=== PATIENT | male | born 1955 | race Caucasian/White ===

== ENCOUNTER → 2017-07-24 | Outpatient (CLI) | payer OTHER ==
[~2017-07-24] MED LIST: ALBU8.5H8 IH; ALPR-475 PO; ASPI325T17 PO; ATOR40TA PO; ATOR40TA78 PO; COLC0.6T37 PO; DEXT4TAB PO; DIGO125T PO; DILT120C75 PO; DILT30TA33 PO; DOXY100T PO; ENOX40SY4 SQ; FERR325T18 PO; FLUC200T PO; FLUT1AER PO; FLUT1BLS INH; FURO40TA6 PO; GLIM2TAB PO; GLIM2TAB2 PO; GLIM4TAB PO; INSU100I18 SQ-INSULIN; IPRA0.2S35 INH; IPRA3AMP NPPB; LATANOPROST OPTH OP; MAGN400T26 PO; METF500T PO; METOPROLOL ER PO; OXYC5SOL8 PO; PANT40TA5 PO; POTA20PA25 PO; PRED10TA14 PO; PRED20TA PO; PRED5DRO15 LEFTEYE; PRED5DRO2 LEFTEYE; PREDNISOLONE ACETATE; TAMS-11 PO; TAMS0.4C2 PO; TIOT18CA INH; WARF10TA6 PO; WARF5TAB7 PO; WARF7.5T6 PO; oxycodone
== END | disposition home or self-care (01) ==
LOC: CFH 15:34
PROVIDERS: ATTEND Internal Medicine Cardiovascular Disease
DX: I50.33 Acute on chronic diastolic (congestive) heart failure (principal)
CPT/HCPCS: 93306

== ENCOUNTER 2017-11-06 21:16 | Emergency (ER) | payer OTHER ==
[~2017-11-06] VITALS: Ht 165.1 cm; Wt 100.5 kg
[2017-11-06 22:01] LABS: BASOPHILS # (AUTO) 0.01 x10^3/uL (0-0.1); BASOPHILS % (AUTO) 0 % (0-1); EOSINOPHILS # (AUTO) 0.27 x10^3/uL (0-0.4); EOSINOPHILS % (AUTO) 4 % (1-7); LYMPHOCYTES % (AUTO) 19 % (22-44); MD NO; MEAN CORPUSCULAR HEMOGLOBIN 29.9 pg (27.5-34.5); MEAN CORPUSCULAR HGB CONC 32.3 g/dL (33.2-36.2); MEAN CORPUSCULAR VOLUME 92.4 fL (81-97); MEAN PLATELET VOLUME 8.6 fL (7.4-10.4); MONOCYTES # (AUTO) 0.75 x10^3/uL (0.2-0.8); MONOCYTES % (AUTO) 11 % (2-9); NEUTROPHILS # (AUTO) 4.56 x10^3/uL (1.8-6.8); NEUTROPHILS % (AUTO) 66 % (42-75); PLATELET COUNT 203 x10^3/uL (130-400); RED CELL DISTRIBUTION WIDTH 16.6 % (9.4-14.8)
[2017-11-06 22:22] LABS: INTERNATIONAL NORMALIZED RATIO 6.5 (0.93-1.1); PROTHROMBIN TIME 65.2 Seconds (9.6-11.5)
[2017-11-06] MEDS ORDERED: BACITRACIN ZINC OINT 500U/GM, 0.9 GM ONE ×2 (23:09→23:16)
[2017-11-06 23:26] VITALS: BP 139/94
[2017-11-06] MEDS ORDERED: PHYTONADIONE 5 MG TABLET PO ONE (23:30)
== END 2017-11-07 01:56 | disposition home or self-care (01) ==
LOC: ED 23:15
DX: R04.0 Epistaxis (principal); Z79.01 Long term (current) use of anticoagulants; E03.9 Hypothyroidism, unspecified; E11.9 Type 2 diabetes mellitus without complications; E87.1 Hypo-osmolality and hyponatremia; J44.9 Chronic obstructive pulmonary disease, unspecified; Z93.3 Colostomy status; Z99.81 Dependence on supplemental oxygen
CPT/HCPCS: 30901; 36415; 85025; 85610; 85730; 99284

== ENCOUNTER → 2018-03-12 | Outpatient (CLI) | payer OTHER ==
[~2018-03-12] MED LIST changes: +WARF-36 PO; +WARF10TA43 PO; -WARF10TA6 PO; -WARF5TAB7 PO; +WARF7.5T46 PO; -WARF7.5T6 PO
== END | disposition home or self-care (01) ==
LOC: RAD 10:43
PROVIDERS: ATTEND Internal Medicine
DX: I51.7 Cardiomegaly (principal); R06.02 Shortness of breath
CPT/HCPCS: 71046

== ENCOUNTER → 2018-06-02 | Outpatient (CLI) | payer OTHER ==
[~2018-06-02] MED LIST changes: -DEXT4TAB PO; -IPRA3AMP NPPB; +IPRA3AMP30 NPPB; +REGADENOSON 0.4 MG/5 ML SYRINGE ONE; +[UNRECOGNIZED DRUG - CODE] PO
== END | disposition home or self-care (01) ==
LOC: CFH 07:38
PROVIDERS: ATTEND Internal Medicine Cardiovascular Disease
DX: I25.9 Chronic ischemic heart disease, unspecified (principal); I10 Essential (primary) hypertension; I48.91 Unspecified atrial fibrillation; R06.02 Shortness of breath
CPT/HCPCS: 78452; 93017; 93306; A9502; J2785

== ENCOUNTER → 2018-09-10 | Outpatient (CLI) | payer OTHER ==
[~2018-09-10] MED LIST changes: +DEXT-230 PO; -REGADENOSON 0.4 MG/5 ML SYRINGE ONE; -[UNRECOGNIZED DRUG - CODE] PO
== END | disposition home or self-care (01) ==
LOC: CFH 09:23
PROVIDERS: ATTEND Nurse Practitioner Family
DX: J44.9 Chronic obstructive pulmonary disease, unspecified (principal); J96.11 Chronic respiratory failure with hypoxia
CPT/HCPCS: 71250

== ENCOUNTER → 2019-06-30 | Outpatient (CLI) | payer OTHER ==
[~2019-06-30] MED LIST changes: +ALLO100T30 PO; -ALPR-475 PO; +ALPR0.5T7 PO; +APIX5TAB PO; +DILT120C58 PO; -DILT120C75 PO; +DILT120C83 PO; +FURO20TA3 PO; -GLIM2TAB2 PO; +GLIM2TAB3 PO; +LEVO88TA4 PO; +LOSA25TA25 PO; +MAGN400T36 PO; +POTA10TA12 PO; +PREDNISOLONE; +UMEC1DIS INH
== END | disposition home or self-care (01) ==
LOC: RAD 11:50
PROVIDERS: ATTEND Nurse Practitioner Family
DX: J44.9 Chronic obstructive pulmonary disease, unspecified (principal); R19.4 Change in bowel habit; R19.5 Other fecal abnormalities; R19.7 Diarrhea, unspecified; F10.21 Alcohol dependence, in remission; E78.00 Pure hypercholesterolemia, unspecified; E11.21 Type 2 diabetes mellitus with diabetic nephropathy; E66.9 Obesity, unspecified; I50.33 Acute on chronic diastolic (congestive) heart failure; J96.11 Chronic respiratory failure with hypoxia; I11.0 Hypertensive heart disease with heart failure; I50.9 Heart failure, unspecified; I48.20 Chronic atrial fibrillation, unspecified; E03.9 Hypothyroidism, unspecified; Z79.01 Long term (current) use of anticoagulants; Z91.19 Patient's noncompliance with other medical treatment and regimen; Z98.890 Other specified postprocedural states
CPT/HCPCS: 74018; 94060; 94618; 94729

== ENCOUNTER 2019-07-09 08:43 | Day surgery (SDC) | payer OTHER ==
[~2019-07-09] VITALS: Ht 165.1 cm; Wt 103.9 kg
[2019-07-09] MEDS ORDERED: LACTATED RINGERS 1,000 ML IV SCH (08:59)
[2019-07-09 09:26] VITALS: BP 145/93
[2019-07-09] MEDS ORDERED: SUCCINYLCHOLINE 20 MG/ML, 10ML ONE (12:05)
[2019-07-09] MEDS ORDERED: ONDANSETRON 2MG/ML, 2ML ONE (12:05)
[2019-07-09] MEDS ORDERED: PROPOFOL 10 MG/ML, 20ML ONE (12:05)
== END 2019-07-09 15:15 | disposition home or self-care (01) ==
LOC: OUT 08:43
PROVIDERS: ATTEND Internal Medicine Gastroenterology
DX: R19.7 Diarrhea, unspecified (principal); D12.3 Benign neoplasm of transverse colon; D12.4 Benign neoplasm of descending colon; K57.30 Diverticulosis of large intestine without perforation or abscess without bleeding; K64.8 Other hemorrhoids; J44.9 Chronic obstructive pulmonary disease, unspecified; I10 Essential (primary) hypertension; I48.91 Unspecified atrial fibrillation; E11.9 Type 2 diabetes mellitus without complications; E66.9 Obesity, unspecified; Z68.38 Body mass index [BMI] 38.0-38.9, adult; Z88.8 Allergy status to other drugs, medicaments and biological substances; Z79.899 Other long term (current) drug therapy
CPT/HCPCS: 45380; 45385; 82962; 88305; J0330; J2405; J2704; J7120

== ENCOUNTER 2019-08-31 08:17 | Inpatient (IN) | payer OTHER ==
[~2019-08-31] VITALS: Ht 165.1 cm; Wt 101.8 kg
[2019-08-31] MEDS ORDERED: SODIUM CHLORIDE FLUSH 10ML SYR IVF ONE (08:30)
[2019-08-31] MEDS ORDERED: FUROSEMIDE 40 MG/4 ML ONE (08:41)
[2019-08-31] MEDS ORDERED: methylPREDNISolone SOD SUCC 125 MG/2 ML ONE (08:41)
[2019-08-31] MEDS ORDERED: ALBUTEROL/IPRATROPIUM 2.5MG/0.5MG, 3 ML ONE (08:44)
[2019-08-31] MEDS: ALBUTEROL/IPRATROPIUM 2.5MG/0.5MG, 3 ML NPPB SCH ×3 (08:51→21:00)
[2019-08-31 08:57] LABS: ALANINE AMINOTRANSFERASE 17 U/L (12-78); ALBUMIN 3.3 g/dL (3.4-5.0); ANION GAP 4 mmol/L (5-15); CALCIUM 8.7 mg/dL (8.5-10.1); CHLORIDE 97 mmol/L (98-107); CREATININE 1.12 mg/dL (0.7-1.3)
[2019-08-31] MEDS ORDERED: methylPREDNISolone SOD SUCC 125 MG/2 ML IV ONE (09:00)
[2019-08-31] MEDS ORDERED: FUROSEMIDE 40 MG/4 ML IV ONE (09:00)
[2019-08-31 09:01] LABS: ALKALINE PHOSPHATASE 86 U/L (45-117); BILIRUBIN,TOTAL 0.4 mg/dL (0.2-1.0); TOTAL PROTEIN 7.9 g/dL (6.4-8.2); TROPONIN I < 0.015 ng/mL (0.000-0.045)
[2019-08-31 09:03] LABS: MD YES; MEAN CORPUSCULAR HEMOGLOBIN 29.7 pg (27.5-34.5); MEAN CORPUSCULAR HGB CONC 31.8 g/dL (33.2-36.2); MEAN CORPUSCULAR VOLUME 93.5 fL (81-97); PLATELET COUNT 159 x10^3/uL (130-400); RED BLOOD COUNT 3.96 x10^6/uL (4.38-5.82)
[2019-08-31 09:24] LABS: BAND#(MANUAL) 0.09 x10^3/uL; BANDS%(MANUAL) 1 % (0-7); BASOS#(MANUAL) 0.09 x10^3/uL (0-0.1); BASOS% (MANUAL) 1 % (0-1); EOS#(MANUAL) 0.17 x10^3/uL (0.0-0.4); EOS% (MANUAL) 2 % (1-7); LYMPH#(MANUAL) 1.46 x10^3/uL (1-3.4); LYMPHS% (MANUAL) 17 % (22-44); MONOS#(MANUAL) 0.69 x10^3/uL (0.3-2.7); MONOS% (MANUAL) 8 % (2-9); SEG#(MANUAL) 6.11 x10^3/uL (1.8-6.8); SEGS% (MANUAL) 71 % (42-75)
[2019-08-31 09:26] LABS: <PLATELET ESTIMATE> ADEQUATE; <PLT MORPHOLOGY> NORMAL PLT MORPH; <RBC MORPHOLOGY> NORMAL
[2019-08-31] MEDS ORDERED: FURO20TA3 PO (10:48)
[2019-08-31] MEDS ORDERED: LOSA25TA25 PO (10:48)
[2019-08-31] MEDS ORDERED: LABETALOL 5MG/ML, 20ML IVPush PRN (12:00)
[2019-08-31] MEDS ORDERED: BISACODYL 10 MG SUPP PR PRN (12:00)
[2019-08-31] MEDS ORDERED: ENALAPRILAT 1.25 MG/ML, 2ML IVPush PRN (12:00)
[2019-08-31] MEDS ORDERED: GLUCAGON 1 MG IM PRN (12:00)
[2019-08-31] MEDS: methylPREDNISolone SOD SUCC 125 MG/2 ML IVPush SCH ×2 (12:00→17:53)
[2019-08-31] MEDS ORDERED: DOCUSATE 100 MG CAPSULE PO PRN (12:00)
[2019-08-31] MEDS ORDERED: POLYETHYLENE GLYCOL 17 GM PACKET PO PRN (12:00)
[2019-08-31] MEDS ORDERED: DEXTROSE 4 GM TAB.CHEW PO PRN (12:00)
[2019-08-31] MEDS ORDERED: DEXTROSE 50%, 50ML SYRINGE IVPush PRN (12:00)
[2019-08-31] MEDS ORDERED: DILTIAZEM 5 MG/ML, 5ML IVPush PRN (12:00)
[2019-08-31] MEDS ORDERED: ONDANSETRON ODT 4 MG PO PRN (12:00)
[2019-08-31] MEDS ORDERED: ONDANSETRON 2MG/ML, 2ML IVPush PRN (12:00)
[2019-08-31] MEDS ORDERED: ALBUTEROL/IPRATROPIUM 2.5MG/0.5MG, 3 ML NPPB PRN (13:00)
[2019-08-31] MEDS ORDERED: TAMSULOSIN 0.4 MG CAP.ER.24H ONE (13:28)
[2019-08-31] MEDS ORDERED: DILTIAZEM 60 MG TABLET ONE (13:28)
[2019-08-31] MEDS ORDERED: PANTOPRAZOLE 20MG TABLET ONE (13:28)
[2019-08-31] MEDS ORDERED: APIXABAN 5 MG TABLET ONE (13:28)
[2019-08-31] MEDS ORDERED: GUAIFENESIN ER 600 MG TABLET ONE (13:28)
[2019-08-31] MEDS: TAMSULOSIN 0.4 MG CAP.ER.24H PO SCH (13:34)
[2019-08-31] MEDS: GUAIFENESIN ER 600 MG TABLET PO SCH ×2 (13:34→20:48)
[2019-08-31] MEDS: APIXABAN 5 MG TABLET PO SCH ×2 (13:35→20:48)
--- NOTE | 2019-08-31 14:21 | NUR ---
PT RECEIVED MEAL TRAY. DENIES FURTHER NEEDS AT THIS TIME
[2019-08-31] MEDS ORDERED: ALBUTEROL/IPRATROPIUM 2.5MG/0.5MG, 3 ML NPPB SCH (15:00)
[2019-08-31] MEDS: PANTOPROZOLE 40MG TABLET PO SCH (15:24)
[2019-08-31] MEDS: DIGOXIN 0.125 MG TABLET PO SCH (15:24)
[2019-08-31] MEDS: LOSARTAN 25MG TABLET PO SCH (15:25)
[2019-08-31] MEDS: POTASSIUM CHLORIDE 10 MEQ TABLET.ER PO SCH (15:25)
[2019-08-31] MEDS: DILTIAZEM 120 MG CAP.ER.24H PO SCH (15:25)
[2019-08-31] MEDS: MAGNESIUM OXIDE 400 MG TABLET PO SCH (17:25)
[2019-08-31] MEDS: INSULIN LISPRO 100 UNITS/ML, PEN SQ-INSULIN SCH ×2 (17:51→20:55)
[2019-08-31 19:48] VITALS: BP 137/85
[2019-08-31] MEDS: SODIUM CHLORIDE FLUSH 10ML SYR IVF SCH (20:49)
[2019-08-31] MEDS: ATORVASTATIN 40 MG TABLET PO SCH (20:54)
[2019-09-01] MEDS: methylPREDNISolone SOD SUCC 125 MG/2 ML IVPush SCH ×4 (00:43→18:14)
[2019-09-01 01:00] VITALS: BP 116/77
[2019-09-01 05:17] LABS: MEAN CORPUSCULAR HEMOGLOBIN 29.1 pg (27.5-34.5); MEAN CORPUSCULAR HGB CONC 31.6 g/dL (33.2-36.2); MEAN CORPUSCULAR VOLUME 92.1 fL (81-97); MEAN PLATELET VOLUME 8.6 fL (7.4-10.4); PLATELET COUNT 174 x10^3/uL (130-400); RED BLOOD COUNT 4.14 x10^6/uL (4.38-5.82); RED CELL DISTRIBUTION WIDTH 14.9 % (9.4-14.8)
[2019-09-01 05:20] LABS: ALBUMIN 3.4 g/dL (3.4-5.0); ANION GAP 3 mmol/L (5-15); CALCIUM 9.1 mg/dL (8.5-10.1); CHLORIDE 96 mmol/L (98-107)
[2019-09-01 05:25] LABS: ALANINE AMINOTRANSFERASE 17 U/L (12-78); ALKALINE PHOSPHATASE 88 U/L (45-117); BILIRUBIN,TOTAL 0.9 mg/dL (0.2-1.0); TOTAL PROTEIN 8.3 g/dL (6.4-8.2)
[2019-09-01 05:55] LABS: BASOPHILS % (AUTO) 0 % (0-1); EOSINOPHILS % (AUTO) 0 % (1-7); LYMPHOCYTES # (AUTO) 0.47 x10^3/uL (1-3.4); LYMPHOCYTES % (AUTO) 9 % (22-44); MD SCAN; MONOCYTES % (AUTO) 2 % (2-9); NEUTROPHILS # (AUTO) 4.58 x10^3/uL (1.8-6.8); NEUTROPHILS % (AUTO) 89 % (42-75)
[2019-09-01] MEDS: PANTOPROZOLE 40MG TABLET PO SCH (06:07)
[2019-09-01] MEDS ORDERED: MAGNESIUM SULFATE 3 GM in SODIUM CHLORIDE 0.9% 100 ML IV ONE (08:00)
[2019-09-01] MEDS ORDERED: SODIUM PHOSPHATE 20 MMOL in SODIUM CHLORIDE 0.9% 500 ML IV ONE (08:00)
[2019-09-01] MEDS: INSULIN LISPRO 100 UNITS/ML, PEN SQ-INSULIN SCH ×4 (08:01→21:21)
[2019-09-01 08:27] VITALS: BP 133/76
[2019-09-01] MEDS ORDERED: FUROSEMIDE 40 MG/4 ML IV SCH (09:00)
[2019-09-01] MEDS: DIGOXIN 0.125 MG TABLET PO SCH (09:27)
[2019-09-01] MEDS: DILTIAZEM 120 MG CAP.ER.24H PO SCH (09:27)
[2019-09-01] MEDS: GUAIFENESIN ER 600 MG TABLET PO SCH ×2 (09:27→21:21)
[2019-09-01] MEDS: CARVEDILOL 3.125 MG TABLET PO SCH ×2 (09:27→18:14)
[2019-09-01] MEDS: MAGNESIUM OXIDE 400 MG TABLET PO SCH (09:28)
[2019-09-01] MEDS: APIXABAN 5 MG TABLET PO SCH ×2 (09:28→21:21)
[2019-09-01] MEDS: TAMSULOSIN 0.4 MG CAP.ER.24H PO SCH (09:28)
[2019-09-01] MEDS: POTASSIUM CHLORIDE 10 MEQ TABLET.ER PO SCH (09:28)
[2019-09-01] MEDS: LOSARTAN 25MG TABLET PO SCH (09:28)
[2019-09-01] MEDS: SODIUM CHLORIDE FLUSH 10ML SYR IVF SCH ×2 (09:29→21:20)
[2019-09-01 10:35] LABS: % IRON SATURATION 21 % (20-55); IRON LEVEL 70 mcg/dL (65-175); TOTAL IRON BINDING CAPACITY 338 mcg/dL (250-450)
[2019-09-01] MEDS: ALBUTEROL/IPRATROPIUM 2.5MG/0.5MG, 3 ML NPPB SCH ×2 (10:45→21:00)
[2019-09-01 13:12] VITALS: BP 116/76
[2019-09-01] MEDS ORDERED: ALBUTEROL/IPRATROPIUM 2.5MG/0.5MG, 3 ML NPPB PRN (16:30)
[2019-09-01 20:42] VITALS: BP 118/82
[2019-09-01] MEDS: FUROSEMIDE 40 MG/4 ML IV SCH (21:20)
[2019-09-01] MEDS: ATORVASTATIN 40 MG TABLET PO SCH (21:21)
[2019-09-01] MEDS: ACETAMINOPHEN 325 MG TABLET PO PRN (21:21)
[2019-09-01 21:26] VITALS: BP 113/72
[2019-09-02] MEDS: methylPREDNISolone SOD SUCC 125 MG/2 ML IVPush SCH ×2 (01:27→09:44)
[2019-09-02 01:53] VITALS: BP 117/68
[2019-09-02 05:47] VITALS: BP 134/84
[2019-09-02] MEDS: PANTOPROZOLE 40MG TABLET PO SCH (05:54)
[2019-09-02] MEDS: CARVEDILOL 3.125 MG TABLET PO SCH ×2 (05:54→17:14)
[2019-09-02 06:27] LABS: ANION GAP 4 mmol/L (5-15); CALCIUM 8.8 mg/dL (8.5-10.1); CHLORIDE 94 mmol/L (98-107)
[2019-09-02 06:28] LABS: CREATININE 1.07 mg/dL (0.7-1.3)
[2019-09-02 08:18] VITALS: BP 130/72
[2019-09-02] MEDS: INSULIN LISPRO 100 UNITS/ML, PEN SQ-INSULIN SCH ×4 (08:26→20:57)
[2019-09-02] MEDS: ALBUTEROL/IPRATROPIUM 2.5MG/0.5MG, 3 ML NPPB SCH ×2 (09:00→19:45)
[2019-09-02] MEDS: DILTIAZEM 120 MG CAP.ER.24H PO SCH (09:43)
[2019-09-02] MEDS: TAMSULOSIN 0.4 MG CAP.ER.24H PO SCH (09:43)
[2019-09-02] MEDS: GUAIFENESIN ER 600 MG TABLET PO SCH ×2 (09:43→20:57)
[2019-09-02] MEDS: MAGNESIUM OXIDE 400 MG TABLET PO SCH (09:43)
[2019-09-02] MEDS: POTASSIUM CHLORIDE 10 MEQ TABLET.ER PO SCH (09:43)
[2019-09-02] MEDS: DIGOXIN 0.125 MG TABLET PO SCH (09:44)
[2019-09-02] MEDS: FUROSEMIDE 40 MG/4 ML IV SCH ×2 (09:44→20:58)
[2019-09-02] MEDS: LOSARTAN 25MG TABLET PO SCH (09:44)
[2019-09-02] MEDS: APIXABAN 5 MG TABLET PO SCH ×2 (09:44→20:57)
[2019-09-02] MEDS: SODIUM CHLORIDE FLUSH 10ML SYR IVF SCH ×2 (09:46→20:58)
[2019-09-02 20:05] VITALS: BP 129/80
[2019-09-02 20:55] VITALS: BP 106/70
[2019-09-02] MEDS: methylPREDNISolone SOD SUCC 40 MG/ML IVPush SCH (20:58)
[2019-09-02] MEDS: ATORVASTATIN 40 MG TABLET PO SCH (20:58)
[2019-09-02] MEDS: ACETAMINOPHEN 325 MG TABLET PO PRN (21:09)
[2019-09-03] MEDS ORDERED: COLC0.6C3 PO (00:47)
[2019-09-03] MEDS ORDERED: ALLO100T30 PO (00:49)
[2019-09-03] MEDS ORDERED: PRED5DRO20 LEFTEYE (00:51)
[2019-09-03] MEDS ORDERED: LOSA25TA2 PO (00:56)
[2019-09-03 01:11] VITALS: BP 134/85
[2019-09-03] MEDS: ACETAMINOPHEN 325 MG TABLET PO PRN (01:13)
[2019-09-03 05:35] VITALS: BP 128/85
[2019-09-03] MEDS: CARVEDILOL 3.125 MG TABLET PO SCH ×2 (05:38→18:33)
[2019-09-03] MEDS: PANTOPROZOLE 40MG TABLET PO SCH (05:38)
[2019-09-03] MEDS: INSULIN LISPRO 100 UNITS/ML, PEN SQ-INSULIN SCH ×5 (08:18→22:03)
[2019-09-03 09:08] VITALS: BP 91/62
[2019-09-03 09:38] LABS: ANION GAP 5 mmol/L (5-15); CALCIUM 8.8 mg/dL (8.5-10.1); CHLORIDE 91 mmol/L (98-107); CREATININE 1.27 mg/dL (0.7-1.3)
[2019-09-03] MEDS: FUROSEMIDE 40 MG/4 ML IV SCH (09:47)
[2019-09-03] MEDS: TAMSULOSIN 0.4 MG CAP.ER.24H PO SCH (09:48)
[2019-09-03] MEDS: DILTIAZEM 120 MG CAP.ER.24H PO SCH (09:48)
[2019-09-03] MEDS: methylPREDNISolone SOD SUCC 40 MG/ML IVPush SCH (09:48)
[2019-09-03] MEDS: GUAIFENESIN ER 600 MG TABLET PO SCH ×2 (09:48→22:02)
[2019-09-03] MEDS: DIGOXIN 0.125 MG TABLET PO SCH (09:49)
[2019-09-03] MEDS: APIXABAN 5 MG TABLET PO SCH ×2 (09:49→22:02)
[2019-09-03] MEDS: LOSARTAN 25MG TABLET PO SCH (09:49)
[2019-09-03] MEDS: POTASSIUM CHLORIDE 10 MEQ TABLET.ER PO SCH (09:49)
[2019-09-03] MEDS: MAGNESIUM OXIDE 400 MG TABLET PO SCH (09:57)
[2019-09-03] MEDS: SODIUM CHLORIDE FLUSH 10ML SYR IVF SCH ×2 (09:58→21:00)
[2019-09-03] MEDS: ALBUTEROL/IPRATROPIUM 2.5MG/0.5MG, 3 ML NPPB SCH ×2 (10:55→19:05)
[2019-09-03 13:50] VITALS: BP 110/78
[2019-09-03] MEDS ORDERED: SODIUM CHLORIDE 0.9%, 250ML IVBOLUS ONE (15:30)
[2019-09-03 19:11] VITALS: BP 128/78
[2019-09-03] MEDS: ATORVASTATIN 40 MG TABLET PO SCH (22:02)
[2019-09-04] MEDS: ALBUTEROL/IPRATROPIUM 2.5MG/0.5MG, 3 ML NPPB SCH ×3 (01:33→21:09)
[2019-09-04 01:46] VITALS: BP 132/76
[2019-09-04 06:37] VITALS: BP 127/87
[2019-09-04] MEDS: PANTOPROZOLE 40MG TABLET PO SCH (06:38)
[2019-09-04] MEDS: CARVEDILOL 3.125 MG TABLET PO SCH ×2 (06:38→16:49)
[2019-09-04] MEDS: INSULIN LISPRO 100 UNITS/ML, PEN SQ-INSULIN SCH ×4 (09:00→20:58)
[2019-09-04] MEDS: LOSARTAN 25MG TABLET PO SCH (09:00)
[2019-09-04] MEDS: POTASSIUM CHLORIDE 10 MEQ TABLET.ER PO SCH (09:00)
[2019-09-04] MEDS: SODIUM CHLORIDE FLUSH 10ML SYR IVF SCH ×2 (09:00→20:58)
[2019-09-04] MEDS ORDERED: methylPREDNISolone SOD SUCC 40 MG/ML IVPush SCH (09:00)
[2019-09-04] MEDS: APIXABAN 5 MG TABLET PO SCH ×2 (09:00→20:58)
[2019-09-04] MEDS: MAGNESIUM OXIDE 400 MG TABLET PO SCH (09:00)
[2019-09-04] MEDS: GUAIFENESIN ER 600 MG TABLET PO SCH ×2 (09:00→20:58)
[2019-09-04] MEDS: TAMSULOSIN 0.4 MG CAP.ER.24H PO SCH (09:00)
[2019-09-04] MEDS: DIGOXIN 0.125 MG TABLET PO SCH (09:01)
[2019-09-04] MEDS: DILTIAZEM 120 MG CAP.ER.24H PO SCH (09:01)
[2019-09-04 09:32] LABS: CALCIUM 8.7 mg/dL (8.5-10.1); CHLORIDE 94 mmol/L (98-107); CREATININE 1.06 mg/dL (0.7-1.3)
[2019-09-04 09:57] LABS: ANION GAP 3 mmol/L (5-15)
[2019-09-04] MEDS ORDERED: FUROSEMIDE 40 MG/4 ML IV SCH (11:30)
[2019-09-04 16:00] VITALS: BP 115/79
[2019-09-04 20:52] VITALS: BP 119/84
[2019-09-04] MEDS: ATORVASTATIN 40 MG TABLET PO SCH (20:58)
[2019-09-05 01:45] VITALS: BP 126/89
[2019-09-05 05:03] LABS: ANION GAP 6 mmol/L (5-15); CALCIUM 8.7 mg/dL (8.5-10.1); CHLORIDE 91 mmol/L (98-107); CREATININE 1.15 mg/dL (0.7-1.3)
[2019-09-05] MEDS: PANTOPROZOLE 40MG TABLET PO SCH (06:16)
[2019-09-05] MEDS: CARVEDILOL 3.125 MG TABLET PO SCH (06:17)
[2019-09-05] MEDS: INSULIN LISPRO 100 UNITS/ML, PEN SQ-INSULIN SCH ×2 (07:00→11:28)
[2019-09-05 07:05] VITALS: BP 122/85
[2019-09-05] MEDS: ALBUTEROL/IPRATROPIUM 2.5MG/0.5MG, 3 ML NPPB SCH (09:30)
[2019-09-05] MEDS: DILTIAZEM 120 MG CAP.ER.24H PO SCH (09:53)
[2019-09-05] MEDS: MAGNESIUM OXIDE 400 MG TABLET PO SCH (09:53)
[2019-09-05] MEDS: LOSARTAN 25MG TABLET PO SCH (09:53)
[2019-09-05] MEDS: TAMSULOSIN 0.4 MG CAP.ER.24H PO SCH (09:53)
[2019-09-05] MEDS: APIXABAN 5 MG TABLET PO SCH (09:53)
[2019-09-05] MEDS: POTASSIUM CHLORIDE 10 MEQ TABLET.ER PO SCH (09:53)
[2019-09-05] MEDS: GUAIFENESIN ER 600 MG TABLET PO SCH (09:54)
[2019-09-05] MEDS: DIGOXIN 0.125 MG TABLET PO SCH (09:54)
[2019-09-05] MEDS: SODIUM CHLORIDE FLUSH 10ML SYR IVF SCH (09:55)
[2019-09-05] MEDS: ACETAMINOPHEN 325 MG TABLET PO PRN (11:06)
[2019-09-05] MEDS ORDERED: FURO-92 PO (12:26)
[2019-09-05] MEDS ORDERED: CARV3.1212 PO (12:26)
== END 2019-09-05 14:31 | disposition home health service (06) | DRG 291 ==
LOC: ED 09:01 → EDIP 10:30 → 4WST 15:46 → DCLOUNGE 09-05 14:18
PROVIDERS: ADMIT Internal Medicine; ATTEND Hospitalist
DX: I11.0 Hypertensive heart disease with heart failure (principal); J96.21 Acute and chronic respiratory failure with hypoxia; J96.22 Acute and chronic respiratory failure with hypercapnia; D68.69 Other thrombophilia; E87.3 Alkalosis; I48.20 Chronic atrial fibrillation, unspecified; J44.1 Chronic obstructive pulmonary disease with (acute) exacerbation; D64.9 Anemia, unspecified; I50.33 Acute on chronic diastolic (congestive) heart failure; E03.9 Hypothyroidism, unspecified; E11.9 Type 2 diabetes mellitus without complications; E66.01 Morbid (severe) obesity due to excess calories; E78.5 Hyperlipidemia, unspecified; E83.39 Other disorders of phosphorus metabolism; E83.42 Hypomagnesemia; I27.20 Pulmonary hypertension, unspecified; I34.0 Nonrheumatic mitral (valve) insufficiency; I49.3 Ventricular premature depolarization; N40.0 Benign prostatic hyperplasia without lower urinary tract symptoms; Z77.22 Contact with and (suspected) exposure to environmental tobacco smoke (acute) (chronic); Z79.01 Long term (current) use of anticoagulants; Z83.3 Family history of diabetes mellitus; Z86.711 Personal history of pulmonary embolism; Z87.891 Personal history of nicotine dependence; Z99.81 Dependence on supplemental oxygen; Z68.37 Body mass index [BMI] 37.0-37.9, adult; Z88.8 Allergy status to other drugs, medicaments and biological substances
CPT/HCPCS: 36415; 84145; 96374; 96375; 99285; J7620; 71045; 80048; 80053; 82962; 83036; 83540; 83550; 83605; 83735; 83880; 84100; 84443; 84484; 85025; 87040; 93005; 93306; 94640; G0378; J1940; J3475; J1815; J2920; J2930; J7040; J7050; J7512